=== PATIENT | female | born 1990 | race Caucasian/White ===

== ENCOUNTER 2023-11-05 07:26 | Inpatient (IN) | payer OTHER, SELFPAY ==
[2023-11-05 07:31] VITALS: BP 153/90; BMI 26.4
[2023-11-05] MEDS: LR 1000 IV ×3 (08:00→12:17)
[2023-11-05 08:39] LABS: % Basophils 0.2 % (0-2); % Eosinophils 0.2 % (0-6); % Immature Granulocytes 0.6 % (0-0.5); % Lymphocytes 18.4 % (20.5-51.1); % Monocytes 5.4 % (1.7-9.3); % Neutrophils 75.2 % (42.2-75.2); Absolute Immature Granulocytes 0.1 10^3/uL (0-0.05); Absolute Lymphocytes 3.1 10^3/uL (1.2-3.4); Absolute Monocytes 0.9 10^3/uL (0.1-0.6); Absolute Neutrophils 12.5 10^3/uL (1.4-6.5); Hematocrit 34.9 % (37.0-47.0); Hemoglobin 12.8 g/dL (12.0-16.0); Mean Corp Hgb Conc. 36.7 g/dL (33.0-37.0); Mean Corpuscular Hgb 30.9 pg (27.0-31.0); Mean Corpuscular Volume 84.3 fL (81.0-99.0); Mean Platelet Volume 10.2 fL (7.4-10.4); Nucleated Red Blood Cells % 0 %; Platelet Count 204 10^3/uL (130-400); Red Blood Cell Count 4.14 10^6/uL (4.20-5.40); Red Cell Dist. Width 13.2 % (11.5-14.5); White Blood Cell Count 16.6 10^3/uL (4.8-10.8)
[2023-11-05 09:21] LABS: ALT (SGPT) 71 U/L (0-35); AST (SGOT) 86 U/L (14-36); Albumin 3.6 g/dl (3.5-5.0); Alkaline Phosphatase 179 U/L (38-126); Blood Urea Nitrogen 8 mg/dl (7-17); Calcium 9.3 mg/dl (8.4-10.2); Carbon Dioxide 21 mmol/L (22-30); Chloride 103 mmol/L (98-107); Estimated Creatinine Clearance 112 ml/min; Glucose 79 mg/dl (70-99); Potassium 4.1 mmol/L (3.5-5.1); Sodium 131 mmol/L (135-145); Total Bilirubin 0.5 mg/dl (0.2-1.3); Total Protein 6.4 g/dl (6.3-8.2); eGFR > 60.00
[2023-11-05 10:53] LABS: Protein/creatinine Ratio 1.8; Urine Protein 14 mg/dl
[2023-11-05] MEDS: MAGNESIUM SULFATE 100 IV (12:17)
[2023-11-05] MEDS: MAGNESIUM SULFATE 40 GRAM 1000 IV (12:37)
[2023-11-05] MEDS: PITOCIN 30 UNITS/NSS 500 ML IV (12:45)
[2023-11-05] MEDS: MORPHINE SULFATE 2 MG IV (15:12)
[2023-11-05] MEDS: PHENERGAN 50.5 MG IV (15:25)
[2023-11-05] MEDS: SUBLIMAZE 100 MCG EPIDURAL (16:49)
[2023-11-05] MEDS: FENTANYL/BUPIVACAINE 100 EPIDURAL (16:50)
[2023-11-06] MEDS: FENTANYL/BUPIVACAINE 100 EPIDURAL ×2 (00:06→08:26)
[2023-11-06] MEDS: MAGNESIUM SULFATE 40 GRAM 1000 IV ×2 (08:27→18:26)
[2023-11-06] MEDS: PITOCIN 30 UNITS/NSS 500 ML IV (09:22)
[2023-11-06] MEDS: HEMABATE 250 MCG IM (10:04)
[2023-11-06] MEDS: CYTOTEC 800 MCG RECTAL (10:05)
[2023-11-06] MEDS: MOTRIN 600 MG PO ×2 (13:42→19:51)
[2023-11-06] MEDS: SENOKOT-S 1 TABLET PO (13:43)
[2023-11-06] MEDS: LR 1000 IV (18:26)
[2023-11-07] MEDS: MOTRIN 600 MG PO ×3 (02:11→20:30)
[2023-11-07 06:46] LABS: Hematocrit 27.1 % (37.0-47.0); Mean Corp Hgb Conc. 34.7 g/dL (33.0-37.0); Mean Corpuscular Hgb 30.7 pg (27.0-31.0); Mean Corpuscular Volume 88.6 fL (81.0-99.0); Mean Platelet Volume 10.1 fL (7.4-10.4); Platelet Count 158 10^3/uL (130-400); Red Blood Cell Count 3.06 10^6/uL (4.20-5.40); Red Cell Dist. Width 13.5 % (11.5-14.5); White Blood Cell Count 17.2 10^3/uL (4.8-10.8)
[2023-11-07 06:52] LABS: Hemoglobin 9.4 g/dL (12.0-16.0)
[2023-11-07 07:05] LABS: ALT (SGPT) 33 U/L (0-35); AST (SGOT) 43 U/L (14-36)
[2023-11-07] MEDS: SENOKOT-S 1 TABLET PO (09:47)
[2023-11-07] MEDS: PRENATAL PLUS 1 TABLET PO (09:47)
[2023-11-07] MEDS: FEOSOL 325 MG PO (20:30)
[2023-11-08] MEDS: MOTRIN 600 MG PO ×2 (04:41→10:10)
[2023-11-08] MEDS: SENOKOT-S 1 TABLET PO (09:09)
[2023-11-08] MEDS: FEOSOL 325 MG PO (09:09)
[2023-11-08] MEDS: PRENATAL PLUS 1 TABLET PO (09:09)
[2023-11-08 16:40] LABS: Syphilis/T. pallidum Ab Reflex Negative (Negative)
== END 2023-11-08 12:25 | disposition home or self-care (01) | DRG 807 ==
LOC: LDRP 07:26
PROVIDERS: Obstetrics & Gynecology; ADMITTING PHYSICIAN Obstetrics & Gynecology; FAMILY PHYSICIAN Internal Medicine; REFERRING PHYSICIAN Obstetrics & Gynecology
PROC: 0HQ9XZZ Repair Perineum Skin, External Approach (ICD-10-PCS; 2023-11-06)
PROC: 10E0XZZ Delivery of Products of Conception, External Approach (ICD-10-PCS; 2023-11-06)
DX: O48.0 Post-term pregnancy (principal); Z37.0 Single live birth; O14.14 Severe pre-eclampsia complicating childbirth; Z01.818 Encounter for other preprocedural examination; O75.89 Other specified complications of labor and delivery; Z3A.40 40 weeks gestation of pregnancy; O32.6XX0 Maternal care for compound presentation, not applicable or unspecified; O70.0 First degree perineal laceration during delivery; O69.82X0 Labor and delivery complicated by other cord entanglement, without compression, not applicable or unspecified
CPT/HCPCS: 88307; 36415; 80053; 82570; 84156; 84450; 84460; 85025; 85027; 86780; 86850; 86900; 86901